=== PATIENT | female | born 1965 | race American Indian/Alaskan Native ===

== ENCOUNTER 2017-02-06 16:01 | Outpatient (CLI) | payer BC ==
[2017-02-08 14:08] LABS: CYTOMETRY FIRST MARKER SCANNED INTO MED REC; FLOW CYTOMETRY >16 SCANNED INTO MED REC
== END 2017-02-06 16:02 | disposition home or self-care (01) ==
LOC: LABHHL 16:01
PROVIDERS: ATTEND Surgery
DX: C76.1 Malignant neoplasm of thorax (principal); R59.9 Enlarged lymph nodes, unspecified
CPT/HCPCS: 88184; 88185; 88305; 88341; 88342

== ENCOUNTER 2017-02-23 09:03 | Outpatient (CLI) | payer BC ==
--- NOTE | 2017-02-27 13:29 | Magnetic Resonance Report ---
BILATERAL BREAST MRI WITHOUT AND WITH CONTRAST: 02/23/17 09:03:00 CLINICAL: Status post left axillary lymph node biopsy 02/06/17 with pathologic result of metastatic adenocarcinoma, consistent with ductal carcinoma. Unknown primary. COMPARISON:01/15/17 mammogram. TECHNIQUE: Axial 1.0-mm T1 without, axial high resolution 2.0-mm T2 and axial 1.0-mm dynamic Vibrant high-resolution postcontrast T1 fat saturation sequences on a 1.5 Yeimi magnet. The examination was performed with an 8 channel dedicated [place] breast coil. Post processing with CAD and subtraction was performed on an [employer] workstation. 20 cc of Multihance was injected without incident for the contrast portion of the exam. Consent was obtained prior to the administration of the contrast. FINDINGS: Right: Moderate background parenchymal enhancement. No mass or suspicious enhancement. A benign intraparenchymal lymph node in the lower outer quadrant 5.6 cm from the nipple measures 6.1 mm. No suspicious right axillary or right internal mammary lymph nodes. Left: Moderate background parenchymal enhancement. No mass. However, retroareolar segmental non-Mass enhancement with a reticular pattern measures 7.0 cm AP dimension by 3.2 cm transverse dimension by 2.7 cm craniocaudal dimension. It demonstrates heterogeneous enhancement with mixed kinetics, 274% peak enhancement and 6% type III washout. No other suspicious enhancement. No skin thickening or lymphedema. Several abnormal left axillary lymph nodes have absent or minimal central fat. The largest contains a biopsy clip and measures 2.1 x 1.6 cm. IMPRESSION: 1. Extensive segmental left retroareolar non-Mass enhancement is highly suspicious for the breast cancer primary. No mass of the breast. 2. Left axillary lymph node metastasis with several abnormal lymph nodes. 3. Negative right breast. RIGHT BI-RADS 1 -- Negative LEFT BI-RADS 6 -- Known Cancer
== END 2017-02-23 09:04 | disposition home or self-care (01) ==
LOC: SPVIMAG 09:03
PROVIDERS: ATTEND Surgery
DX: C77.3 Secondary and unspecified malignant neoplasm of axilla and upper limb lymph nodes (principal); C50.912 Malignant neoplasm of unspecified site of left female breast
CPT/HCPCS: 0159T; A9577; C8908; 77059

== ENCOUNTER 2017-03-13 10:50 | Outpatient (CLI) | payer BC ==
[2017-03-13] MEDS ORDERED: NACL ONE ×2 (11:24→12:45)
[2017-03-13 11:49] LABS: Blood Urea Nitrogen 12 mg/dL (7-17)
--- NOTE | 2017-03-13 15:29 | Cat Scan Report ---
CT ABDOMEN WITHOUT AND WITH CONTRAST: 03/13/17 10:50:00 CLINICAL: Newly diagnosed left breast cancer with suspicious focal right hepatic FDG uptake on PET. COMPARISON: 03/08/17 CT PET TECHNIQUE: Volumetric acquisition and 1.25 millimeter scan reconstructions after the uneventful intravenous injection of 100 cc Omnipaque 300. Consent was obtained prior to the administration of contrast. Oral contrast was also given. Scanning was performed with a triple phase technique with post contrast scans performed at 30 seconds, 60 seconds and five minutes post injection. FINDINGS: Abdomen: The liver is mildly enlarged with the right lobe measuring 19.4 cm in length. Diffuse heterogeneous density and geographic areas of hypodensity consistent with hepatic steatosis. The hypodense areas measure 25 Hounsfield units in density compared to 42 Hounsfield units for the spleen. No liver lesion is identified to correlate with the focal FDG uptake at the level of the right ninth rib. A gallbladder is not identified but there are no surgical clips in the colleen hepatis. The intrahepatic and extrahepatic bile ducts are normal. Normal stomach, duodenum, pancreas and spleen. Normal aorta and inferior vena cava. Normal adrenal glands and kidneys. The renal collecting systems and ureters are nondilated.The imaged portions of small bowel and colon are normal.No ascites, mass or lymphadenopathy. Bone windows demonstrate no bone lesion. IMPRESSION:1. Negative study with no hepatic lesion identified to correlate with the CT PET finding. Recommend followup with PET in 6 months. 2. Hepatic steatosis and mild hepatomegaly.
== END 2017-03-13 10:51 | disposition home or self-care (01) ==
LOC: CT 10:50
PROVIDERS: ATTEND Surgery
DX: C78.7 Secondary malignant neoplasm of liver and intrahepatic bile duct (principal); C50.612 Malignant neoplasm of axillary tail of left female breast; K76.0 Fatty (change of) liver, not elsewhere classified; R16.0 Hepatomegaly, not elsewhere classified
CPT/HCPCS: 36415; 74170; 82565; 84520; Q9967